=== PATIENT | female | born 1980 | race Caucasian/White ===

== ENCOUNTER 2017-07-30 09:33 | Emergency (ER) | payer BC ==
[~2017-07-30] VITALS: Ht 170.2 cm; Wt 59.0 kg
[~2017-07-30 09:33] MED LIST: WELLBUTRIN 100100 M1 PO
--- OUTSIDE RECORDS SUMMARY | 2017-07-30 09:45 | External Medical Summary Rpt | CCD ---
Demographics Preferred Language [place]i Marital Status Unknown Adventist Affiliation Unknown Race Unknown Ethnic Group Unknown Author Author , ADRIANA WRIGHT Address Unknown Phone Immunization No patient found.
--- OUTSIDE RECORDS SUMMARY | 2017-07-30 09:45 | External Medical Summary Rpt | CCD ---
Author Author [facility] Organization [facility] Address Unknown Phone Unavailable Purpose Continuity of Care Document - through 2016
--- OUTSIDE RECORDS SUMMARY | 2017-07-30 09:45 | External Medical Summary Rpt | CCD ---
Demographics Preferred Language Lebanese Marital Status Unknown Yazidism Affiliation Unknown Race Unknown Ethnic Group Unknown Author Author , ADRIANA WRIGHT Address Unknown Phone Immunization No patient found.
--- OUTSIDE RECORDS SUMMARY | 2017-07-30 09:45 | External Medical Summary Rpt | CCD ---
Author Author , ADRIANA WRIGHT Address Unknown Phone [email or web address] Purpose Continuity of Care Document - through 2016
--- OUTSIDE RECORDS SUMMARY | 2017-07-30 09:45 | External Medical Summary Rpt | CCD ---
Author Author , ADRIANA WRIGHT Address Unknown Phone [email or web address] Purpose Continuity of Care Document - through 2016
[2017-07-30] MEDS ORDERED: FLONASE 50 MCG16 GM (10:03)
[2017-07-30] MEDS ORDERED: AUGMENTIN 875-1 EACH PO (10:03)
--- NOTE | 2017-07-30 10:04 | Urgent Treatment Center Report ---
History of Present Issue Date/Time Seen by Provider 07/30/17 0953 Visit Reason Pt arrived:Walked Presenting Problem:PT C/O SINUS INFECTION X2 DAYS Location if Accident: Onset of symptoms date/time:/ or onset unknown for:MEDICAL HX UNKNOWN Have you (or family members/close friends) recently traveled outside the [place]? N If Yes, where/when: Have you had exposure to infectious disease within the past month? TB? Other? Specify: Patient state that she has been having sinus pain and pressure for the last 2 days States that she started getting sick about a week ago and then it went away but now is back and worse than what it was. State that she is feeling pressure in her ear, sinus tenderness and pain State that it even makes her teeth hurt. State that this morning she had to come in and get checked because she felt like her face looked puffy ALLERGIES Coded Allergies: guaifenesin (From MUCINEX) (Mild, 07/30/17) Home Medications Reported Medications Bupropion Hcl (Wellbutrin 100MG) 100 MG PO QHS History Medical History General CAD? No Angina: No MA: No Hypertension? No Hyperlipidemia? No CHF? No DVT? No PE? No COPD? No Asthma? No Anemia? No GERD? No Gastric ulcers? No GI Bleed? No Hernia? No Thyroid Problems? No Hypothyroidism? No CVA? No Seizures? No Diabetes? No Renal Insuffiency? No UTI? No Stones? No BPH? No GB Disease: No Nephritic Syndrome? No Asplenia? No Hepatitis? No Sickle Cell Disease? No Arthritis? No Migraines? No Cataracts? No Glaucoma? No MRSA? No HIV? No TB? No Anxiety? No Depression? No Cancer? No More? No Immunization HX DT/Tetanus UNKNOWN Surgical Hx Previous Surgery?Y LAPAROSCOPY 2011 T&A LASIK SURGERY BILATERAL ORAL SURGERY Social History Smoking Hx Smoker: Never Smoker Tobacco: No Alcohol Alcohol: No Review of Systems All Other Systems Reviewed and Negative ENT nose discharge, nose congestion. Physical Exam Vital Signs Vital Signs Date Time Temp Pulse Resp B/P Pulse O2 O2 Flow FiO2 Ox Delivery Rate 07/30 0950 98.0 82 20 114/78 99 General Appearance normal appearance, WD/WN, no apparent distress Ear, Nose, Throat sinus pain/drainage, nasal congestion, Tenderness on palpation of maxillary sinsuses, reports pressure feeling in ears and behind eyes, denies bleeding or recent injury Respiratory Status Yes: trachea midline, chest symmetrical, non tender chest. No: respiratory distress. Lung Sounds bilateral: normal breath sounds, lungs clear. Cardiovascular normal exam, regular rate/rhythm, no peripheral edema Neurologic alert, normal exam, oriented x 3 Medical Decision Making LABS/Meds/Orders Pt receiving controlled substance in ED? No Results/Orders Current Medication Orders Sig/Sherrie Start time Last Medication Dose Route Stop Time Status Admin Methylprednisolone 0 .STK-MED ONE 07/30 100 DC Sodium Succinate .ROUTE Methylprednisolone 125 MG ONCE ONE 07/30 1000 DC Sodium Succinate IM 07/30 100 Departure Departure Time of Disposition 1002 Disposition DC Home or Self Care(routine) Clinical Impression Primary Impression: Sinusitis Qualifiers: Sinusitis location: maxillary Chronicity: unspecified Qualified Code: J32.0 - Chronic maxillary sinusitis Condition STABLE Referrals Inderjit BLANKENSHIP,Gautam (Family): 3 Days-Call Office if no improvement or worsening of symptoms Patient Instructions DI for Sinus Headache, DI for Sinusitis, Sinus Headache, Sinusitis Additional Instructions * Monitor Temp. Tylenol and/or Ibuprofen as needed. ER if fever is no less than 101 despite alternating Tylenol and Ibuprofen * Encourage fluids, water, Gatorade, powerade, pedialyte if /toddler/or child * Warm salt water gargles for throat irritation *Warm fluids *Sore throat lozenges *Sleep elevated *humidifier or vaporizer Lots of rest Increase fluids, water, Gatorade, powerade *Flonase 2 sprays each nostril daily but may take 2-3 days to notice improvement with it Follow up IMMEDIATELY for new or worsening of symptoms OR no noticeable improvement over the next 48-72 hours. 911 immediately for any life threatening symptoms such as chest pain or difficulty breathing Discharge Counseling Counseled pt/family regarding diagnosis, medications/RX, home care, follow up needs Prescriptions Current Visit Scripts Amoxicillin/Potassium Clav (Augmentin 875-125 Tablet) 1 EACH PO BID #14 TAB Fluticasone Propionate (Flonase 50 Mcg Nasal [place]) 2 SPRAY NA DAILY #1 BOT at 1003
[2017-07-30 10:08] VITALS: BP 114/78
== END 2017-07-30 10:14 | disposition home or self-care (01) ==
LOC: UTC 09:33
DX: J32.0 Chronic maxillary sinusitis (principal)